=== PATIENT | female | born 1960 | race Hispanic/Latino ===

== ENCOUNTER 2018-06-11 18:31 | Observation (INO) | payer OTHER ==
[~2018-06-11] VITALS: Ht 157.5 cm; Wt 63.0 kg
[2018-06-11 19:04] LABS: BASOPHILS % 0.4 % (0.0-1.0); EOSINOPHILS # (AUTO) 0.2 (0.0-0.4); HEMATOCRIT 37.8 % (34.2-44.1); LYMPHOCYTES # (AUTO) 2.1 (1.0-3.2); LYMPHOCYTES % 31.7 % (18.0-39.1); MEAN CORPUSCULAR HGB CONC 34.4 g/dL (31-35); MEAN CORPUSCULAR VOLUME 87.1 fL (81-99); MONOCYTES # (AUTO) 0.4 (0.2-0.8); MONOCYTES % 6.4 % (4.4-11.3); NEUTROPHILS # (AUTO) 3.9 (2.1-6.9); NEUTROPHILS % 58.2 % (38.7-80.0); PLATELET COUNT 218 x10e3/uL (140-360); RED BLOOD COUNT 4.34 x10e6/uL (3.6-5.1); RED CELL DISTRIBUTION WIDTH 13.2 % (11.7-14.4)
[2018-06-11 19:14] LABS: INR 1.06
[2018-06-11 19:15] LABS: PARTIAL THROMBOPLASTIN TIME 29.7 seconds (23.8-35.5)
[2018-06-11 19:21] LABS: ALANINE AMINOTRANSFERASE 16 IU/L (0-55); ALBUMIN/GLOBULIN RATIO 1.1 (0.8-2.0); ALKALINE PHOSPHATASE 86 IU/L (40-150); ANION GAP 14.6 mmol/L (8-16); BLOOD UREA NITROGEN 17 mg/dL (7-26); BUN/CREATININE RATIO 20 (6-25); CALCIUM 9.7 mg/dL (8.4-10.2); CARBON DIOXIDE 25 mmol/L (22-29); CHLORIDE 107 mmol/L (98-107); CREATINE KINASE 50 IU/L (29-168); CREATININE, SERUM 0.86 mg/dL (0.57-1.11); EST GLOMERULAR FILTRATION RATE > 60 ML/MIN (60-); GLUCOSE 97 mg/dL (74-118); POTASSIUM 3.6 mmol/L (3.5-5.1); SODIUM 143 mmol/L (136-145)
--- NOTE | 2018-06-11 20:12 | Diagnostic Imaging Report ---
EXAMINATION: CHEST SINGLE (PORTABLE) INDICATION: Chest tightness COMPARISON: None FINDINGS: TUBES and LINES: None. LUNGS: Lungs are well inflated. Lungs are clear. There is no evidence of pneumonia or pulmonary edema. PLEURA: No pleural effusion or pneumothorax. HEART AND MEDIASTINUM: The cardiomediastinal silhouette is unremarkable. BONES AND SOFT TISSUES: No acute osseous lesion. Soft tissues are unremarkable. UPPER ABDOMEN: No free air under the diaphragm. IMPRESSION: No acute thoracic abnormality. Signed by: Dr. Carter Acevedo M.D. on 06/11/2018 8:09 PM
[2018-06-11 21:04] LABS: CLARITY,URINE CLEAR (CLEAR); COLOR,URINE YELLOW (YELLOW)
[2018-06-11 21:05] LABS: BILIRUBIN,URINE NEGATIVE (NEGATIVE); KETONES,URINE NEGATIVE (NEGATIVE); LEUKOCYTE ESTERASE ,URINE 1+ (NEGATIVE); NITRITE,URINE NEGATIVE (NEGATIVE); PROTEIN,URINE DIPSTICK NEGATIVE (NEGATIVE); URINE UROBILINOGEN 0.2 mg/dL (0.2 - 1)
[2018-06-11] MEDS ORDERED: NITROGLYCERIN 0.4 MG SUBL SL PRN (21:15)
[2018-06-11] MEDS ORDERED: ASPIRIN 81 MG CHEW TAB PO ONE (21:15)
[2018-06-11 21:18] LABS: EPITHELIAL CELLS,URINE MODERATE /LPF; RBC,URINE 0-5 /HPF (0-5); TRANSITIONAL EPI CELLS,URINE FEW
[2018-06-11] MEDS ORDERED: SYNTHROID88 MCG PO (21:58)
[2018-06-11 22:46] VITALS: BP 145/64
[2018-06-12] VITALS (7 sets, daily range): BP systolic 109–169; BP diastolic 58–80
[2018-06-12 03:26] LABS: CREATINE KINASE 43 IU/L (29-168)
[2018-06-12 06:50] LABS: CHOL/HDL RATIO 2.7 (3.0-3.6)
[2018-06-12] MEDS: ASPIRIN 325 MG TAB EC PO SCH (07:45)
[2018-06-12 10:16] LABS: CREATINE KINASE 41 IU/L (29-168)
--- NOTE | 2018-06-12 18:07 | Consultation ---
DATE OF CONSULTATION: June 12, 2018 CARDIOLOGY CONSULTATION REASON FOR CONSULTATION: Chest pain. HISTORY: This is a very nice, 57-year-old lady who is known with hypothyroidism. In fact, the patient had radioactive iodine treatment for hyperthyroidism. She is doing relatively well. For the last few days she is under stress. She feels episodes of chest tightness and chest pressure. One of the episodes went to her neck. The episode happened when she was under stress. One of the episodes happened when she was driving her car. She decided to come to the emergency room. Her cardiac enzymes were normal. Patient was admitted for further management. Serial cardiac enzymes were normal. There is no orthopnea. No paroxysmal nocturnal dyspnea. There is class II shortness of breath on exertion. There is easy fatigability. There is no orthopnea. No paroxysmal nocturnal dyspnea. REVIEW OF SYSTEMS CARDIAC: As per above. PULMONARY: No cough. No hemoptysis. GI: No hematemesis. No melena. : No hematuria. No dysuria. NEUROMUSCULAR: No aches. No pains. SOCIAL HISTORY: Patient is . She is nonsmoker and a social alcohol drinker. She works in the school district. HOME MEDICATION: Levothyroxine 88 mcg a day. ALLERGIES: NONE. PAST MEDICAL HISTORY: Radioactive treatment for hyperthyroidism in 2007. Tubal ligation. FAMILY HISTORY: Father of complications of diabetes mellitus and end-stage renal disease at age 74. Mother is age 77. She is diabetic and hypertensive. She is doing well. Seven siblings, 4 brothers and 3 sisters, all are healthy. Four kids, all are healthy. PHYSICAL EXAMINATION VITALS: Height 5 feet 2 inches. Weight of 139 pounds. Blood pressure 120/70. Heart rate of 50. Respiratory rate of 18. HEENT: Pupils are equal and reactive. NECK: No elevation of jugular venous pulsation. No bruit. CHEST: Clear to auscultation and percussion. HEART: PMI at 5th left intercostal space. Normal 1st and 2nd heart sounds. ABDOMEN: Soft. No organomegaly. EXTREMITIES: No cyanosis. No clubbing. No edema. LABORATORY DATA: Triglycerides 114, total cholesterol 207, HDL 81, LDL 113, TSH 0.328. EKG showing sinus bradycardia, incomplete right bundle-branch block, nonspecific ST changes. IMAGING: Chest x-ray: No major abnormality. IMPRESSION AND PLAN: Chest pain with mainly atypical characteristics. RECOMMENDATIONS: Serial cardiac enzymes, telemetry, aspirin, cardiac stress test if all enzymes are normal. Case discussed and explained to the patient and her daughter. Questions are answered. Job#: [id number]
--- NOTE | 2018-06-12 19:16 | History and Physical ---
HISTORY OF PRESENT ILLNESS: Patient is a 57-year-old female with no past medical history who came here with chest pain. REVIEW OF SYSTEMS CARDIOVASCULAR: She had chest pain episode and shortness of breath. RESPIRATORY: Minimal shortness of breath when she had the chest pain, but not on exertion, no cough. GASTROINTESTINAL: No nausea, no vomiting, no diarrhea. GENITOURINARY: No frequency or dysuria. MUSCULOSKELETAL: No pain in any joint. PAST MEDICAL HISTORY: Negative for any significant medical condition. SOCIAL HISTORY: No smoking. No drinking. PHYSICAL EXAMINATION VITAL SIGNS: Blood pressure 135/59, temperature 96.6, heart rate around 60 per minute, respiratory rate 22 per minute. Oxygen saturation 96%. HEART: Regular rhythm. Normal S1 and S2 sounds. LUNGS: Clear bilaterally. ABDOMEN: Soft. EXTREMITIES: No evidence of cyanosis, edema or trauma. Chest x-ray is normal. No significant abnormality. Troponin times 3 completely normal. EKG shows sinus bradycardia. No evidence of any ST-segment elevation or depression. On the BMP, sodium 143, potassium 3.6, chloride 107, CO2 25, BUN 17, creatinine 0.86. Glucose 97. On the CBC, white blood count 6.75, hemoglobin 13.0, hematocrit 37.8, platelet count 280,000. PT 13.0, PTT 29.7, INR 1.06. AST 18, ALT 16, total bilirubin 0.7, alkaline phosphatase 86. FINAL IMPRESSION 1. Atypical chest pain. 2. Bradycardia. PLAN OF TREATMENT: Continue aspirin 325 mg daily, nitroglycerin 0.4 mg sublingual q.5 minutes p.r.n. for chest pain. Resume the Levoxyl she was taking at home. Dr. Mckeon has been consulted from the cardiology point of view. He is going to do a stress test tomorrow. Job#: [id number]
[2018-06-13] VITALS: BP 122/56
[2018-06-13 00:49] VITALS: BP 136/63
[2018-06-13 04:00] VITALS: BP 106/54
[2018-06-13] MEDS ORDERED: LEVOTHYROXINE SODIUM 88 MCG TAB PO SCH (06:30)
[2018-06-13 07:28] VITALS: BP 113/54
--- NOTE | 2018-06-13 09:37 | Discharge Summary ---
Ms. Hurtado is a 57-year-old female with a history of hypothyroidism came to the emergency room complaining of a few days of chest pain like a pressure radiating to her neck. She decided to come to the emergency room. PHYSICAL EXAMINATION GENERAL: Today, she is awake and alert. She is ready for her stress test. VITALS: Temperature is 97.2, blood pressure 113/54. HEART: Regular rate. LUNGS: Clear to auscultation. ABDOMEN: Soft. BLOOD WORK: White count is 6.75, hemoglobin 13, hematocrit 37.8. Potassium is 3.6, creatinine is 0.86, glucose 97. Three sets of cardiac enzymes came back negative. Cholesterol is 217. Had a chest x-ray done that shows no acute normal. She has been evaluated by health science instructor. ASSESSMENT AND PLAN 1. Atypical chest pain. Ruled out coronary artery disease. 2. Bradycardia. 3. Hypothyroidism. PLAN: At the present time, it seems that the workup, cardiac enzymes, EKG had been normal. The patient is on aspirin and Synthroid at the present time. She is going for a stress test today. If negative, the patient is going to be discharged home and follow up as an outpatient. All of this was discussed with the patient. All questions were answered to satisfaction. Please see home medication reconciliation list. MJ CHAPARRO MD Job#: [id number] [place]
[2018-06-13] MEDS: ASPIRIN 325 MG TAB EC PO SCH (10:03)
[2018-06-13 10:09] VITALS: BP 113/54
[2018-06-13 11:20] VITALS: BP 111/55
--- NOTE | 2018-06-13 12:29 | Cardiology Report ---
DATE OF STUDY: June 13, 2018 TITLE OF TEST: Cardiac stress test. TECHNICAL DETAILS: The protocol is Andres with target heart rate of 138 per minute. RESULTS 1. Patient exercised for 8 minutes and 31 seconds. 2. Blood pressure increased from 150/47 to 199/92. 3. Heart rate increased from 47 to 145 per minute. 4. No chest pain. 5. No EKG changes. IMPRESSION: Negative cardiac stress test with good exercise tolerance. Limitations are discussed and explained. Job#: [id number] [facility]
== END 2018-06-13 11:55 | disposition home or self-care (01) ==
LOC: ER 18:31 → INTOOBSV 21:09 → ERHOLD 21:09 → MED/SURG 22:10
PROVIDERS: ADMIT Internal Medicine; ATTEND Internal Medicine
DX: R07.89 Other chest pain (principal); E03.9 Hypothyroidism, unspecified; R00.1 Bradycardia, unspecified; E78.5 Hyperlipidemia, unspecified
CPT/HCPCS: 36415; 71045; 80053; 80061; 81001; 82550 ×2; 82553 ×2; 84443; 84484 ×2; 85025; 85610; 85730; 87086; 93005; 93017; 93306; 99284; G0378 ×3